=== PATIENT | male | born 1940 | race Caucasian/White ===

== ENCOUNTER 2020-08-21 14:45 | Outpatient (CLI) | payer MEDICARE, OTHER ==
--- NOTE | 2020-08-21 15:46 | CT Report ---
PROCEDURE: UPPER EXTREMITY WO - RT INDICATIONS: PAIN IN THE RT ARM AND SHOULDER TECHNIQUE: Noncontrast 3 mm axial sections acquired of the right shoulder, with coronal and sagittal reformats. COMPARISON: None. FINDINGS: Image quality: Excellent. Severely comminuted fracture of the proximal right humerus involving the greater tuberosity, surgical neck. Anatomic alignment remains at the glenohumeral joint, as well as AC joint. There is medial ang ulation of the dominant distal humeral shaft fracture fragment. Mild irregularity involving the poste rior inferior glenoid raising possibility of nondisplaced fracture although this could be degenerativ e spurring and volume averaging artifact. Visualized lung grossly unremarkable. Partially visualized cervical spine below symphysis and facet a rthropathy. Scattered carotid atherosclerotic calcified plaque. IMPRESSION: Severely comminuted fracture of the right proximal humerus involving the greater tuberosity and surgi pawel neck, with impacted appearance and medial angulation of the dominant distal humeral shaft fragmen t. Moderate cortical irregularity involving the posterior inferior glenoid, which could be degenerative spurring and volume averaging artifact. Continued surveillance with shoulder radiographs to assess fo r healing sclerosis could be performed as clinically warranted. Reviewed by: Blue Estrada MD on 08/21/2020 3:45 PM PST Approved by: Blue Estrada MD on 08/21/2020 3:45 PM PST Station ID: [id number]
== END 2020-08-21 14:46 | disposition home or self-care (01) ==
LOC: DI 14:45
PROVIDERS: ATTEND Nurse Practitioner Family
DX: M25.511 Pain in right shoulder (principal); M79.601 Pain in right arm; S42.251A Displaced fracture of greater tuberosity of right humerus, initial encounter for closed fracture; S42.211A Unspecified displaced fracture of surgical neck of right humerus, initial encounter for closed fracture

== ENCOUNTER 2021-01-08 07:00 | Outpatient (CLI) | payer MEDICARE, OTHER ==
--- NOTE | 2021-01-08 15:49 | XRAY Report ---
PROCEDURE: Shoulder 3 View RT INDICATIONS: DISPLACED FX OF GREATER TUBEROSITY OF R HUMERUS TECHNIQUE: 4 views of the shoulder were acquired. COMPARISON: CT shoulder dated 08/21/2020 FINDINGS: Redemonstrated severely displaced fracture of the surgical neck and greater tuberosity of the right humerus. There is medial angulation of the humeral head as before. Interval callus formatio n and sclerosis are study. Overall, no definite change in alignment since the prior CT however limite d comparison given differences in imaging modality. Severe acromioclavicular and moderate glenohumeral joint degeneration. The visualized right lung patricia sly unremarkable. IMPRESSION: Grossly unchanged alignment as above. Reviewed by: Blue Estrada MD on 01/08/2021 3:47 PM PDT Approved by: Blue Estrada MD on 01/08/2021 3:47 PM PDT Station ID: [id number]
== END 2021-01-08 23:59 | disposition home or self-care (01) ==
LOC: DI.N 07:00
PROVIDERS: ATTEND Physician Assistant
DX: S42.251A Displaced fracture of greater tuberosity of right humerus, initial encounter for closed fracture (principal)

== ENCOUNTER 2021-01-18 10:42 | Outpatient (CLI) | payer MEDICARE, OTHER ==
--- NOTE | 2021-01-18 16:25 | CT Report ---
PROCEDURE: UPPER EXTREMITY WO - RT INDICATIONS: DISPLACED FX OF RIGHT HUMERUS TECHNIQUE: Noncontrast 3 mm axial sections acquired of the right humerus, with coronal and sagittal reformats. COMPARISON: Right shoulder radiograph dated 01/08/[address] of right humerus dated 08/21/2020. FINDINGS: Image quality: Excellent. Bones: Compared to previous study, again noted is comminuted and displaced fracture involving right humeral head/neck region with superior migration of proximal humeral shaft in relation to humeral hea d. There is involvement of greater and lesser tuberosities. Fairly well corticated bony margin is not ed on the current study. There is superior and lateral displacement of proximal humeral shaft in rela tion to humeral head. Moderate acromioclavicular joint and glenohumeral joint osteophytic changes are seen. Soft tissues: Numerous displaced fractured fragments are noted adjacent to the proximal humeral shaf t fracture site. Linear calcifications are noted within glenohumeral joint space which may represent chondrocalcinosis versus intra-articular displaced fractured fragments. There is suggestion of modera te joint effusion. No gross full-thickness rotator cuff tendon rupture is noted. IMPRESSION: 1. Severely comminuted and displaced right has/neck fracture as above with superior and lateral migra tion of proximal humeral shaft in relation to humeral head and multiple small displaced fractured fra gments. Fairly well-corticated margin at fracture site is seen suggestive of nonunion. 2. Possible chondrocalcinosis versus intra-articular loose body seen in glenohumeral joint space. Mod erate glenohumeral joint effusion. Moderate acromioclavicular joint and glenohumeral joint osteoarthr itis. Reviewed by: Jorge Luis Mills MD on 01/18/2021 4:24 PM PDT Approved by: Jorge Luis Mills MD on 01/18/2021 4:24 PM PDT Station ID: [id number]
== END 2021-01-18 10:43 | disposition home or self-care (01) ==
LOC: DI 10:42
PROVIDERS: ATTEND Physician Assistant
DX: S42.211G Unspecified displaced fracture of surgical neck of right humerus, subsequent encounter for fracture with delayed healing (principal); M25.411 Effusion, right shoulder; R93.6 Abnormal findings on diagnostic imaging of limbs

== ENCOUNTER 2021-08-30 09:37 | Outpatient (CLI) | payer MEDICARE, OTHER ==
--- NOTE | 2021-08-30 10:58 | DEXA Report ---
PROCEDURE: Dexa Spine and/or Hip INDICATIONS: OSTEOPOROSIS TECHNIQUE: Dual energy x-ray absorptiometry (DXA) was performed on a [employer] System. Regions measur ed are the AP Spine, femoral neck, and if needed forearm. COMPARISON: None. FINDINGS: Lumbar Spine: Bone Mineral Density 1.101 g/cm/cm,T score -1.0, lower limits of normal. Left Hip: Bone Mineral Density 0.766 g/cm/cm, T score -2.3, osteopenia. Left Femoral Neck: Bone Mineral Density 0.766 g/cm/cm, T score -2.3, osteopenia. (T score greater or equal to -1.0: NORMAL) (T score from -1.1 to -2.4: OSTEOPENIA) (T score less than or equal to -2.5 to: OSTEOPOROSIS) Impression: Lumbar spine bone mineral density is at the lower limits of normal. Left hip osteopenia. Patients with diagnosis of osteoporosis or osteopenia should have regular bone mineral density assess ment. For those eligible for Medicare, routine testing is allowed once every 2 years. Testing frequ ency can be increased for patients who have rapidly progressing disease or for those who are receivin g medical therapy to restore bone mass. Reviewed by: Ricardo Avila MD on 08/30/2021 10:57 AM PST Approved by: Ricardo Avila MD on 08/30/2021 10:57 AM PST Station ID: [id number]
== END 2021-08-30 09:38 | disposition home or self-care (01) ==
LOC: DI 09:37
PROVIDERS: ATTEND Family Medicine
DX: M85.89 Other specified disorders of bone density and structure, multiple sites (principal)

== ENCOUNTER 2022-04-16 14:50 | Outpatient (CLI) | payer MEDICARE, OTHER ==
--- NOTE | 2022-04-17 16:35 | CT Report ---
PROCEDURE: Low Dose Lung Cancer Screen INDICATIONS: SCREENING FOR LUNG CA TECHNIQUE: After the administration of intravenous contrast, 1 mm axial images were acquired from the pulmonary apices through the posterior costophrenic angles. Axial 5 mm soft tissue kernel reconstructions were performed as well as 8 mm axial MIP and coronal and sagittal 5 mm reformations. For radiation dose reduction, the following was used: automated exposure control, adjustment of mA and/or kV according to patient size. COMPARISON: None. FINDINGS: Image quality: Excellent. Lungs and pleura: No acute air space opacities. No pleural effusions or pneumothorax. Central and peripheral airways are patent and normal in caliber. 7 x 5 mm nodule in the right middle lobe adjace nt to the fissure series 4 image 190. 2 calcified nodules are seen in the left apex. 4 mm nodule and 4 mm nodule along the left fissure series 4 images 191 and 189. 5 mm nodule in the left upper lobe se josue 4 image 209. Mediastinum: Heart size is normal. The coronary arteries have atherosclerotic calcifications. No p ericardial effusion. No mediastinal or hilar adenopathy by size criteria. Thoracic aorta and centra l pulmonary arteries are normal in size. Esophagus is normal in caliber. No hiatal hernia. Bones and chest wall: No suspicious bony lesions. No vertebral body compression fractures. No axil korin or supraclavicular adenopathy by size criteria. Thyroid gland is normal. The thoracic spine has degenerative changes. Abdomen: Visualized upper abdominal solid organs appear normal. Upper abdominal bowel loops are nor mal in caliber. There is a 3.1 x 2.7 cm hypodensity in the right lobe of the liver which is partiall y visualized with the density of 10 Hounsfield units, probably a hemangioma or cyst. IMPRESSION: Probably benign. Lung RADS 3. Recommend short-term follow-up with low-dose CT in 6 months. 1. 7 x 5 mm nodule in the right middle lobe along the fissure, series 4 image 190. 2. Two 4 mm nodules on the left, series 4 image 191 and 189. 3. 4mm nodule in the left upper lobe series 4 image 209. 4. 2 calcified nodules in the left apex. Other findings: 1. 3.1 x 2.7 cm hypodensity in the right lobe of the liver, likely a hemangioma or cyst. Reviewed by: Aakash Good on 04/17/2022 4:34 PM PDT Approved by: Aakash Good on 04/17/2022 4:34 PM PDT Station ID: [id number]
== END 2022-04-16 14:51 | disposition home or self-care (01) ==
LOC: DI 14:50
PROVIDERS: ATTEND Family Medicine
DX: Z12.2 Encounter for screening for malignant neoplasm of respiratory organs (principal); R91.8 Other nonspecific abnormal finding of lung field; Z87.891 Personal history of nicotine dependence

== ENCOUNTER 2022-10-06 10:42 | Outpatient (CLI) | payer MEDICARE, OTHER ==
--- NOTE | 2022-10-06 13:48 | CT Report ---
PROCEDURE: Low Dose Lung Cancer Screen INDICATIONS: ABN LUNG IMAGING TECHNIQUE: Noncontrast low-dose axial images were acquired from the pulmonary apices to the posterior costophren ic angles. Multiplanar MIP reformats were then reconstructed. For radiation dose reduction, the follo wing was used: automated exposure control, adjustment of mA and/or kV according to patient size. COMPARISON: 04/16/2022 FINDINGS: Image quality: Excellent. Lungs and pleura: No pleural effusions. No pneumothorax. Stable juxtapleural nodules without suspici ous features, presumably intrapulmonary lymph nodes (4/137). Mild bronchial thickening. Calcified gra nuloma. Non-juxtapleural nodules as follows: -Stable 4.5 mm solid nodule, lingula (4/198). -Stable 3 mm solid nodule, central right upper lobe (4/77). Mediastinum: Heart size is normal. No pericardial effusions. No mediastinal adenopathy by size criter ia. No large vessel abnormality. Three vessel coronary artery calcifications. Chest wall and lower neck: Thyroid is unremarkable. No axillary or supraclavicular adenopathy by size . Bones: No aggressive osseous abnormality. Upper Abdomen: Fluid attenuating cyst hepatic cysts. IMPRESSION: Lung RAD: 2 - Benign. Continue annual screening in 12 Months with LDCT Non-Lung Significant Findings: Coronary Arterial Calcification - Moderate or Severe CLINICAL RECOMMENDATION STATEMENTS: In patients <35 years with an ITN detected on CT, MRI, or extrathyroidal ultrasound, the Committee re commends further evaluation with dedicated thyroid ultrasound if the nodule is "e1 cm and has no susp icious imaging features, and if the patient has normal life expectancy. In patients "e35 years with an ITN detected on CT, MRI, or extrathyroidal ultrasound, the Committee r ecommends further evaluation with dedicated thyroid ultrasound if the nodule is "e1.5 cm and has no s uspicious imaging features, and if the patient has normal life expectancy. (ACR, 2014) Reviewed by: Russ Rush on 10/06/2022 1:46 PM PDT Approved by: Russ Rush on 10/06/2022 1:46 PM PDT Station ID: [id number]
== END 2022-10-06 10:43 | disposition home or self-care (01) ==
LOC: DI 10:42
PROVIDERS: ATTEND Family Medicine
DX: Z12.2 Encounter for screening for malignant neoplasm of respiratory organs (principal); I25.10 Atherosclerotic heart disease of native coronary artery without angina pectoris; Z87.891 Personal history of nicotine dependence

== ENCOUNTER 2023-01-15 10:07 | Outpatient (CLI) | payer MEDICARE, OTHER ==
--- NOTE | 2023-01-15 13:46 | XRAY Report ---
PROCEDURE: Ankle 3 View RT INDICATIONS: RT ANKLE PX TECHNIQUE: 3 views of the ankle were acquired. COMPARISON: None. FINDINGS: Bones: No fractures or dislocations. Ankle mortise is normally aligned. Soft tissues: No tibiotalar joint effusion. Vascular calcifications are present. IMPRESSION: No acute bony abnormality. If there remains a high clinical concern for fracture, consider cross-sect ional imaging now. If pain persists, consider repeat x-ray in 10-14 days or cross-sectional imaging. Reviewed by: Juvenal Amaya MD on 01/15/2023 1:44 PM PDT Approved by: Juvenal Amaya MD on 01/15/2023 1:44 PM PDT Station ID: [id number]
== END 2023-01-15 10:08 | disposition home or self-care (01) ==
LOC: DI 10:07
PROVIDERS: ATTEND Podiatrist
DX: M25.571 Pain in right ankle and joints of right foot (principal)